=== PATIENT | male | born 1985 | race Caucasian/White ===

== ENCOUNTER 2020-01-09 14:41 | Emergency (ER) | payer MEDICAID, OTHER ==
[~2020-01-09] VITALS: Ht 165.1 cm; Wt 67.7 kg
[~2020-01-09 14:41] MED LIST: IBUP-1051 PO
[2020-01-09 15:00] VITALS: BP 141/94
== END 2020-01-09 17:29 | disposition home or self-care (01) ==
LOC: ER 14:42
DX: S02.2XXA Fracture of nasal bones, initial encounter for closed fracture (principal); S05.12XA Contusion of eyeball and orbital tissues, left eye, initial encounter; S05.11XA Contusion of eyeball and orbital tissues, right eye, initial encounter; K21.9 Gastro-esophageal reflux disease without esophagitis; F17.200 Nicotine dependence, unspecified, uncomplicated; F12.90 Cannabis use, unspecified, uncomplicated; Z72.89 Other problems related to lifestyle; Z88.8 Allergy status to other drugs, medicaments and biological substances; Z79.899 Other long term (current) drug therapy; Y04.8XXA Assault by other bodily force, initial encounter; Y93.89 Activity, other specified; Y92.89 Other specified places as the place of occurrence of the external cause; Y99.8 Other external cause status
CPT/HCPCS: 70450; 70486; 99285